=== PATIENT | male | born 1935 | race Caucasian/White ===

== ENCOUNTER → 2016-11-07 | Outpatient (CLI) | payer OTHER | LOC: CIMAGING 14:33 | PROVIDERS: ATTEND Internal Medicine | DX: K59.00 Constipation, unspecified (principal) | CPT/HCPCS: 74020-PO ==

== ENCOUNTER 2016-11-30 04:40 | Emergency (ER) | payer OTHER ==
--- NOTE | 2016-11-30 04:58 | EDPHY ---
H & P Time Seen by Provider: 11/30/16 04:40 HPI/ROS: CHIEF COMPLAINT: frequent urination. HISTORY OF PRESENT ILLNESS: 83 yo male who at baseline will get up 4 times in the night to urinate, on normal day. However as of this evening he finds himself awakening every 0.5 hour, locally unable to fall asleep as he needs to urinate at that point in time. He is not quite sure if he is having small volumes or not. Nonetheless it does not bother him. He is not having any stinging or burning or for fevers or chills or nausea vomiting. Furthermore he did notice through the course of the day today that he was urinating quite frequently, again without dysuria but really did not keep track it was only till tonight when he could fall asleep that he was noticing that it was particularly awry He is having no pain. There is no fevers or chills or nausea vomiting. No diarrhea. Scheduled for right hip replacement surgery in 4 days time He does recall this past [place] been tried on a course of VESIcare as he is having particular trouble with urinary frequency. Did not help, it was expensive, thus he discontinued it. At home, poor sleep, starting frustrated and feeling a little lightheaded thus he took his blood pressure which was unusually high for him. Though he did have a nuclear stress test just 3 days ago came in for general evaluation. REVIEW OF SYSTEMS: Constitutional: No fever, no chills. Eyes: No discharge ENT: No sore throat. Cardiovascular: No chest pain, no palpitations. Respiratory: No cough, shortness of breath, or wheezing. Gastrointestinal: No nausea vomiting or diarrhea. No abdominal pain. Genitourinary: No hematuria or foul-smelling urine Musculoskeletal: No back pain. Skin: No rashes. Neurological: No headache. 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 T&A, APPY - Family History Significant Family History: No pertinent family hx - Social History Smoking Status: Former smoker Alcohol Use: None Drug Use: None - Physical Exam Exam: General: WD, WN, nontoxic. Afebrile, thin elderly male. Skin is warm dry. HEENT: Slightly dry mucous membranes. TMs are clear. Phonation normal. Hearing normal. Neck: No adenopathy Lungs: Good air entry both lung duffy. No rales rhonchi wheezes Cardiovascular: Irregular rate and rhythm. No murmur Abdomen: No distention, flat. He winces when I press the left CVA. However he states it hurts on both sides on exam though he does not flinch on the right. BS present, soft, nontender. No masses. No guarding or rebound. No evidence of bladder enlargement on exam by percussion. Rectal: Prostate is small for his age slightly firm. Not boggy or tender. Genitalia: nl hair pattern. Descended bilaterally. [Circumsized], no lesions or discharge. Scrotum without swelling or tenderness. No focal tenderness. Nontender at mc, without weakness to the inguinal ring. No discharge. Extremities: Stigmata of chronic venous insufficiency however there is no acute swelling. No lymphatic changes. Neurologic: Awake alert nontoxic. Constitutional: Initial Vital Signs Temperature (C) 36.4 C 11/30/16 04:40 Heart Rate 78 11/30/16 04:40 Respiratory Rate 18 11/30/16 04:40 Blood Pressure 163/121 H 11/30/16 04:40 O2 Sat (%) 95 11/30/16 04:40 O2 Delivery Mode Room Air Allergies/Adverse Reactions: No Known Allergies Allergy (Verified 11/18/16 11:53) Home Medications: Medication Instructions Recorded Aspirin [Aspirin 81mg (*)] 81 mg PO DAILY@11/14/16 Digoxin 250 mcg PO DAILY@11/14/16 Diltiazem [Cardizem 60 MG (*)] 60 mg PO TID 11/14/16 Phenazopyridine HCl [Pyridium] 200 mg PO TID #6 tab 11/30/16 Sulfamethox/Tmp 800/160 mg 1 tab PO BID #6 tab 11/30/16 [Bactrim Ds] Medical Decision Making - Diagnostics EKG Interpretation: EKG. Interpreted by me contemporaneously. atrial fibrillation. Rate of 75. Rate controlled. QTC of 392. No ischemia ED Course/Re-evaluation: Bedside ultrasound performed for bladder localization as we do not have a bladder scanner. This was a postvoid and I was unable to see the bladder. Furthermore it does not percuss to be distended in this thin man Laboratory studies were essentially normal with a normal white count, normal anion gap, normal lactic acid, and a negative urine. Urine cultures were ordered. HE IS CONCERNED THAT SOMETHING MORE COMP IS GOING ON IS blood pressure was L fluid date at home. Thereby, an EKG was done as well as troponin both of which were negative. Clinical exam and concern is chiefly that for prostatism with frequency related to bladder spasm. No evidence at this point in time to suggest this is prostatitis. However he will be on 3 days of antibiotic pending follow-up with Urology for confirmation the indeed urine culture is negative and no signs of prostatitis evolved. I have impressed upon the family that they need to know this before her surgery on Thursday, 2 d from now. Differential Diagnosis: Differential diagnosis includes but is not limited to: Urinary tract infection, pyelonephritis, cystitis, ureterolithiasis, kidney stone, urinary retention, At this point time there is no evidence suggests this prostatitis. His prostate is not tender or soft for inflamed. The urinalysis is negative. Nonetheless that is still a concern thus he will go on Bactrim therapy pending the culture of the urine, with urologic follow-up. - Data Points Laboratory Results: Laboratory Results 11/30/16 05:07 11/30/16 05:07 11/30/16 11/30/16 11/30/16 05:07 05:07 05:07 WBC 4.63 10^3/uL 10^3/uL (3.80-9.50) RBC 4.74 10^6/uL 10^6/uL (4.40-6.38) Hgb 14.6 g/dL g/dL (13.7-17.5) Hct 43.6 % % (40.0-51.0) MCV 92.0 fL fL (81.5-99.8) MCH 30.8 pg pg (27.9-34.1) MCHC 33.5 g/dL g/dL (32.4-36.7) RDW 13.4 % % (11.5-15.2) Plt Count 142 10^3/uL L 10^3/uL (150-400) MPV 9.3 fL fL (8.7-11.7) Neut % (Auto) 38.5 % L % (39.3-74.2) Lymph % (Auto) 48.2 % H % (15.0-45.0) [place] % (Auto) 6.9 % % (4.5-13.0) Eos % (Auto) 5.6 % % (0.6-7.6) Baso % (Auto) 0.6 % % (0.3-1.7) Nucleat RBC Rel Count 0.0 % % (0.0-0.2) Absolute Neuts (auto) 1.78 10^3/uL 10^3/uL (1.70-6.50) Absolute Lymphs (auto) 2.23 10^3/uL 10^3/uL (1.00-3.00) Absolute Monos (auto) 0.32 10^3/uL 10^3/uL (0.30-0.80) Absolute Eos (auto) 0.26 10^3/uL 10^3/uL (0.03-0.40) Absolute Basos (auto) 0.03 10^3/uL 10^3/uL (0.02-0.10) Absolute Nucleated RBC 0.00 10^3/uL 10^3/uL (0-0.01) Immature Gran % 0.2 % % (0.0-1.1) Immature Gran # 0.01 10^3/uL 10^3/uL (0.00-0.10) VBG Lactic Acid Sodium 140 mEq/L mEq/L (134-144) Potassium 4.4 mEq/L mEq/L (3.5-5.2) Chloride 103 mEq/L mEq/L (97-110) Carbon Dioxide 26 mEq/l mEq/l (22-31) Anion Gap 11 mEq/L mEq/L (8-16) BUN 22 mg/dL mg/dL (7-23) Creatinine 0.9 mg/dL mg/dL (0.7-1.3) Estimated GFR > 60 Glucose 101 mg/dL H mg/dL (70-100) Calcium 9.1 mg/dL mg/dL (8.5-10.4) Troponin I 0.012 ng/mL ng/mL (0-0.034) Urine Color Urine Appearance Urine pH Ur Specific [place] Urine Protein Urine Ketones Urine Blood Urine Nitrate Urine Bilirubin Urine Urobilinogen Ur Leukocyte Esterase Urine Glucose 11/30/16 11/30/16 05:07 04:50 WBC RBC Hgb Hct MCV MCH MCHC RDW Plt Count MPV Neut % (Auto) Lymph % (Auto) [place] % (Auto) Eos % (Auto) Baso % (Auto) Nucleat RBC Rel Count Absolute Neuts (auto) Absolute Lymphs (auto) Absolute Monos (auto) Absolute Eos (auto) Absolute Basos (auto) Absolute Nucleated RBC Immature Gran % Immature Gran # VBG Lactic Acid 0.8 mmol/L mmol/L (0.7-2.1) Sodium Potassium Chloride Carbon Dioxide Anion Gap BUN Creatinine Estimated GFR Glucose Calcium Troponin I Urine Color YELLOW Urine Appearance CLEAR Urine pH 6.5 (5.0-7.5) Ur Specific [place] 1.015 (1.002-1.030) Urine Protein NEGATIVE (NEGATIVE) Urine Ketones NEGATIVE (NEGATIVE) Urine Blood NEGATIVE (NEGATIVE) Urine Nitrate NEGATIVE (NEGATIVE) Urine Bilirubin NEGATIVE (NEGATIVE) Urine Urobilinogen 0.2 EU EU (0.2-1.0) Ur Leukocyte Esterase NEGATIVE (NEGATIVE) Urine Glucose NEGATIVE (NEGATIVE) Medications Given: Discontinued Medications Phenazopyridine HCl (Pyridium) 200 mg PO EDNOW ONE Stop: 11/30/16 06:15 Last Admin: 11/30/16 06:52 Dose: 200 mg Trimethoprim/Sulfamethoxazole (Bactrim Ds) 1 ea PO EDNOW ONE PRN Reason: Protocol Stop: 11/30/16 06:15 Last Admin: 11/30/16 06:52 Dose: 1 ea Departure - Departure Disposition: Home, Routine, Self-Care Clinical Impression: Prostatism Condition: Good Additional Instructions: On Thursday Call your urologist: - went to ER at 4 in the morning Thursday - doubt prostatitis, suspect bladder spasms - however, if prostatitis surgery should be postponed - have your urologist see him to double check As a fall back, call this ER on Thursday for the final culture result. Three days of Bactrim therapy pending culture results Three days of Pyridium so as to decrease the frequency of urination. Referrals: Patient,NotPresent [Primary Care Provider] - As per Instructions Prescriptions: Phenazopyridine HCl [Pyridium] 200 mg PO TID #6 tab Sulfamethox/Tmp 800/160 mg [Bactrim Ds] 1 tab PO BID #6 tab
[2016-11-30 05:02] LABS: COLOR YELLOW; LEUKOCYTE ESTERASE,URINE NEGATIVE (NEGATIVE); NITRITE,URINE NEGATIVE (NEGATIVE); PH,URINE 6.5 (5.0-7.5)
[2016-11-30 05:04] VITALS: TEMP 97.5; O2SAT 95
[2016-11-30 05:15] LABS: % IMMATURE GRANULYOCYTES 0.2 % (0.0-1.1); ABSOLUTE IMMATURE GRANULOCYTES 0.01 10^3/uL (0.00-0.10); ADD DIFF? NO; ADD MORPH? NO; ADD SCAN? NO; ATYPICAL LYMPHOCYTE FLAG 10 (0-99); FRAGMENT RBC FLAG 0 (0-99); HEMATOCRIT 43.6 % (40.0-51.0); HEMOGLOBIN 14.6 g/dL (13.7-17.5); LEFT SHIFT FLG 0 (0-99); LIPEMIA HEMOLYSIS FLAG 80 (0-99); MEAN CELL HEMOGLOBIN 30.8 pg (27.9-34.1); MEAN CELL HEMOGLOBIN CONCENTR. 33.5 g/dL (32.4-36.7); MEAN PLATELET VOLUME 9.3 fL (8.7-11.7); PLATELET CLUMPS FLAG 0 (0-99); PLATELET COUNT 142 10^3/uL (150-400); RED BLOOD CELL COUNT 4.74 10^6/uL (4.40-6.38); RED CELL DISTRIBUTION WIDTH 13.4 % (11.5-15.2)
--- NOTE | 2016-11-30 05:16 | CPEKG ---
Heart Rate: 75 RR Interval: 800 QRSD Interval: 88 QT Interval: 364 QTC Interval: 407 QRS [place]: 22 T Wave [place]: 14 EKG Severity - ABNORMAL ECG - EKG Impression: ATRIAL FIBRILLATION, V-RATE 63-90 EKG Impression: LOW VOLTAGE IN FRONTAL LEADS Electronically Signed By: Tim Priest 30-Nov-2016 06:52:26
[2016-11-30 05:28] LABS: ANION GAP 11 mEq/L (8-16); CALCIUM 9.1 mg/dL (8.5-10.4); CARBON DIOXIDE 26 mEq/l (22-31); CHLORIDE 103 mEq/L (97-110); CREATININE 0.9 mg/dL (0.7-1.3); GLOMERULAR FILTRATION RATE > 60; GLUCOSE 101 mg/dL (70-100); POTASSIUM 4.4 mEq/L (3.5-5.2); SODIUM 140 mEq/L (134-144)
[2016-11-30 06:13] VITALS: BP 145/86; PULSE 86; RESP 16
[2016-11-30] MEDS ORDERED: SULFAMETHOX/TMP 800/160 MG 1 TAB PO ONE (06:14)
[2016-11-30] MEDS ORDERED: PHENAZOPYRIDINE HCL 200 MG TAB PO ONE (06:14)
[2016-12-02] MEDS ORDERED: BUPIVACAINE/EPI 0.5% 30 ML SDV ONE (07:55)
[2016-12-02] MEDS ORDERED: THROMBIN (BOVINE) 5,000 UNIT VIAL TP ONE (07:56)
[2016-12-02] MEDS ORDERED: BACITRACIN 50,000 UNITS/10 ML SYR IRR ONE (07:56)
[2016-12-02] MEDS ORDERED: CALCIUM CHLORIDE 1 GM/10 ML INJ ONE (07:56)
[2016-12-02] MEDS ORDERED: POLYMYXIN B SULFATE 500,000 UNIT/10 ML SYR IRR ONE (07:56)
== END 2016-11-30 06:57 | disposition home or self-care (01) ==
LOC: CED 04:40
DX: N40.0 Benign prostatic hyperplasia without lower urinary tract symptoms (principal); Z79.82 Long term (current) use of aspirin; Z87.891 Personal history of nicotine dependence
CPT/HCPCS: 80048-PO; 81003-PO; 83605-PO; 84484-PO; 85025-PO

== ENCOUNTER 2016-12-02 08:36 | Inpatient (IN) | payer OTHER ==
[2016-12-02] MEDS ORDERED: LR 1,000 ML IV ONE (09:27)
[2016-12-02] MEDS ORDERED: CHLORHEXIDINE GLUC HIBICLENS 118 ML BTL TP ONE (09:30)
[2016-12-02] MEDS ORDERED: ROPI/epiNEPH/KETOROLAC/morphINE JOINT COCKTAIL IU ONE (09:30)
[2016-12-02] MEDS ORDERED: ACETAMINOPHEN 325 MG TAB PO ONE (09:30)
[2016-12-02] MEDS ORDERED: POLYMYXIN B SULFATE 500,000 UNIT/10 ML SYR IRR ONE (09:36)
[2016-12-02] MEDS ORDERED: fentaNYL 100 MCG/2 ML INJ ONE (09:55)
[2016-12-02] MEDS ORDERED: FAMOTIDINE 20 MG TAB PO ONE (10:00)
[2016-12-02] MEDS ORDERED: MIDAZOLAM 2 MG/2 ML VIAL ONE (10:00)
[2016-12-02] MEDS ORDERED: CEFAZOLIN 2 GM/DEXTR 100 ML IV ONE (10:00)
[2016-12-02] MEDS ORDERED: PROPOFOL 200 MG/20 ML VIAL ONE (10:32)
[2016-12-02] MEDS ORDERED: PHARMACY PAIN CONSULT 1 EA MISC PRN (12:34)
[2016-12-02] MEDS ORDERED: CYCLOBENZAPRINE 10 MG TAB PO PRN (12:34)
[2016-12-02] MEDS ORDERED: diphenhydrAMINE 25 MG CAP PO PRN (12:34)
[2016-12-02] MEDS ORDERED: BISACODYL 10 MG SUPP PR PRN (12:34)
[2016-12-02] MEDS ORDERED: DIPHENOXYLATE/ATROPINE LOMOTIL 1 TAB PO PRN (12:34)
[2016-12-02] MEDS ORDERED: METOCLOPRAMIDE 10 MG/2 ML VIAL IVP PRN (12:34)
[2016-12-02] MEDS ORDERED: TEMAZEPAM 15 MG CAP PO PRN (12:34)
[2016-12-02] MEDS ORDERED: POLYETHYLENE GLYCOL 3350 17 GM PKT PO PRN (12:34)
[2016-12-02] MEDS ORDERED: PROMETHAZINE HCL 25 MG SUPPR PR PRN (12:34)
[2016-12-02] MEDS ORDERED: TAPENTADOL HCL 50 MG TAB PO PRN (12:34)
[2016-12-02] MEDS ORDERED: ONDANSETRON 4 MG/2 ML VIAL IVP PRN (12:34)
[2016-12-02] MEDS ORDERED: oxyCODONE IR 5 MG TAB PO PRN (12:34)
[2016-12-02] MEDS ORDERED: ONDANSETRON DISINTEGRATING 4 MG TAB PO PRN (12:34)
[2016-12-02] MEDS ORDERED: MAGNESIUM HYDROXIDE 30 ML UDCUP PO PRN (12:34)
[2016-12-02] MEDS ORDERED: LACTULOSE 20 GM/30 ML UDCUP PO PRN (12:34)
--- NOTE | 2016-12-02 12:34 | POSTOPPROG ---
Post Op Note Date of Operation: 12/02/16 Surgeon: Kirti Ca Facilities Maintenance Assistant: coltrain Anesthesia: Epidural Pre-op Diagnosis: r hip oa Procedure: r liliana with fluoro Inf/Abcess present in the surg proc area at time of surgery?: No Depth: Deep Incisional (Fascial) EBL: 100-500
[2016-12-02] MEDS ORDERED: LR 1,000 ML IV SCH (13:00)
[2016-12-02] MEDS ORDERED: ceFAZolin 2 GM/DEXTROSE 100 ML IV SCH (14:00)
--- NOTE | 2016-12-02 14:05 | GOP ---
[f rep st] OPERATIVE REPORT DATE OF OPERATION: 12/02/2016 SURGEON: Kirti Ca MD FINE UNHAIRER: Erwin Hilton, CSFA, LSA, whose presence was medically necessary. ANESTHESIA: Epidural nerve block. PREOPERATIVE DIAGNOSIS: Right hip osteoarthritis. POSTOPERATIVE DIAGNOSIS: Right hip osteoarthritis. PROCEDURE PERFORMED: Right total hip arthroplasty with the use of fluoroscopy. FINDINGS: INDICATIONS: This is an 81-year-old male with a long history of right hip pain, worsening with use and with time, causing a severe limp and using a cane for any activities around his house. X-ray ex am reveals severe osteoarthritic changes. He wishes to have surgery in order to resolve the problem . DESCRIPTION OF PROCEDURE: Patient brought to the operating room after the right side had been ident ified as the correct side by the patient, nurse, and physician. Once in the operating room, he was given an epidural nerve block. He was then placed supine and had a well-padded peroneal post placed on traction table and both legs placed in appropriate leg giordano. Fluoroscopy was used to ensure p monty positioning of the pelvis. Once in position, the arch table was locked into place and the rig ht hip and flank were sterilely prepped and draped in the usual fashion using GSI solution. Once pr epped and draped, a linear incision was made starting 2 cm lateral and inferior to the ASIS and head ing in a 15-degree posterior direction. Sharp dissection was carried down through the skin and subc utaneous layers with bleeding controlled using electrocautery until identifying the fascia overlying the TFL. The fascia was cut in line with its fibers with the TFL retracted laterally. Deeper diss ection into the base of the fascial sheath revealed the circumflex vessels, which were also cauteriz ed. Deeper dissection was carried down onto the fat overlying the anterior capsule with a blunt Cob ra retractor placed on the superior and inferior portions of the femoral neck. A T-incision was the n made through the capsule with stay sutures placed in the superior and inferior flaps, with the Cob ra retractors moved to be intra-articular. Oscillating saw was used to cut across the femoral neck just above the intertrochanteric line. The leg was externally rotated to 40 degrees in order to gai n access to the femoral head, which was able to be removed on its own. The labrum and pulvinar were removed from around the acetabulum and sequential reamers were used starting at 49 mm and extending up to 61 mm in order to achieve bleeding bone and good rim fit. A trial was noted to fit well. It s position was checked on fluoroscopy to ensure adequate depth and fit and angulature. Therefore, a 62 mm Tritanium cluster hole acetabular shell was put into place with a screw placed in the superio r and posterior portions of the cup. Once in position, a 62 x 36 mm polyethylene liner was placed i nto the cup, was noted to fit securely, and attention was then turned to the proximal femur. Proxim al femur was then externally rotated to 90 degrees. Soft tissue dissection was done on the anterior portion of the femoral neck and the superior portion of the femoral neck. Once there had been adeq uate capsular release, the leg was able to be placed in slight extension and adduction. Curette was used to remove medullary bone from the proximal portion of the femur and a rongeur was used to adilson ve the superior portion of the femoral neck. Sequential broaches were then placed within the femora l canal. Noted a size 8 seemed to fit best. Multiple trials were performed and noted that a 132-de gree neck gave better length. Therefore, an Accolade II 132-degree neck angle size 8 stem from [employer] was put into place. Multiple trials were then done with the head, noting the +10 head gave the best stability. Therefore, a 36+10 metal femoral head from [employer] was put into place after the juan nnion had been washed and dried. Final fluoroscopy pictures showed good placement of all the compon ents. The wound was thoroughly irrigated with antibiotic solution and was closed in layers to inclu de 0 Vicryl suture into the capsular layer with plasmagel placed intra-articularly. 0 Vicryl was th en used to close the fascial sheath overlying the TFL, with plasmagel placed within the TFL sheath. 0 Vicryl and 2-0 Vicryl suture were used to close the subcutaneous layers after joint cocktail had been injected around the hip capsule, the periosteum of the acetabulum, and proximal femur. 30 cc o f Marcaine was infused in the subcutaneous layers around the actual skin incision itself, and then t he skin was closed using a 3-0 V-Loc suture and a running subcuticular stitch for the skin. The wou nd was dressed with Steri-Strips, Xeroform, 4 x 4, and Tegaderm. He was completely undraped in the operating room, both legs taken out of the appropriate leg giordano. Peroneal post was removed. Leg lengths were noted to be nearly equal. He was then transferred onto a bed and sent to recovery room in good condition. /[id number]/MODL
[2016-12-02] MEDS ORDERED: DIGOXIN 250 MCG TAB PO SCH (15:00)
[2016-12-02] MEDS: DILTIAZEM 60 MG TAB PO SCH ×2 (17:13→22:30)
[2016-12-02] MEDS: ACETAMINOPHEN 325 MG TAB PO SCH ×2 (17:42→23:31)
[2016-12-02] MEDS: traMADol 50 MG TAB PO SCH ×2 (17:44→23:32)
[2016-12-02] MEDS: ceFAZolin 2 GM/DEXTROSE 100 ML IV SCH (17:53)
[2016-12-02] MEDS: KETOROLAC 30 MG/1 ML SDV IVP SCH ×2 (17:56→23:32)
[2016-12-02] MEDS: SENNOSIDES/DOCUSATE SODIUM TAB PO SCH (20:44)
[2016-12-02] MEDS: FAMOTIDINE 20 MG TAB PO SCH (20:44)
[2016-12-03] MEDS: ceFAZolin 2 GM/DEXTROSE 100 ML IV SCH (01:09)
[2016-12-03 04:58] LABS: HEMATOCRIT 31.8 % (40.0-51.0); HEMOGLOBIN 10.5 g/dL (13.7-17.5)
[2016-12-03] MEDS: KETOROLAC 30 MG/1 ML SDV IVP SCH ×2 (05:07→12:12)
[2016-12-03] MEDS: ACETAMINOPHEN 325 MG TAB PO SCH ×2 (05:08→12:12)
[2016-12-03] MEDS: traMADol 50 MG TAB PO SCH ×2 (05:09→12:12)
[2016-12-03] MEDS: DILTIAZEM 60 MG TAB PO SCH (08:14)
[2016-12-03] MEDS: FAMOTIDINE 20 MG TAB PO SCH (08:40)
[2016-12-03] MEDS: SENNOSIDES/DOCUSATE SODIUM TAB PO SCH (08:40)
[2016-12-03] MEDS ORDERED: RIVAROXABAN 10 MG TAB PO SCH (09:00)
[2016-12-03 11:56] VITALS: BP 113/73; PULSE 85; RESP 15; TEMP 97.8; O2SAT 97
--- NOTE | 2016-12-03 14:15 | SOAPPROG ---
SOAP Progress Note Assessment/Plan: Assessment: Plan: 12/03/16 14:15 d.c home Subjective: no issues Objective: Vital Signs Temp Pulse Resp BP Pulse Ox 36.6 C 85 15 113/73 97 12/03/16 11:55 12/03/16 11:55 12/03/16 11:55 12/03/16 11:55 12/03/16 11:55 Laboratory Results 12/03/16 04:15 12/02/16 12/03/16 12/04/16 05:59 05:59 05:59 Intake Total 3805 Output Total 1275 550 Balance 2530 -550 nvi, no dvt - Time Spent With Patient Time Spent With Patient: 10 - Pending Discharge Pending Discharge Within 24 Hours: Yes Pending Discharge Within 48 Hours: No Pending Discharge Date: 12/04/16 Pending Discharge Time: 11:00 ICD10 Worksheet Patient Problems: Problems Problem Status Onset Arthritis of left knee Acute
--- NOTE | 2016-12-03 14:18 | PDIAF ---
- Diagnosis Code Status: Full Code - Medication Management Discharge Medications: Medications to Continue on Transfer Aspirin EC [Aspirin EC 81 mg (*)] 81 mg PO DAILY@1500 12/02/16 [Last Taken 11/25] Digoxin [Lanoxin 250 mcg (RX)] 125 mcg PO DAILY@1500 12/02/16 [Last Taken ] Diltiazem [Cardizem 60 MG (*)] 60 mg PO DAILY@08,15,23 12/02/16 [Last Taken 09/19 07:00 ONE DOSE] Herbals/Supplements -Info Only 1 ea PO DAILY 12/02/16 [Last Taken Unknown] Polyethylene Glycol 3350 [Miralax 17 gm (*)] 17 gm PO DAILY PRN 12/02/16 [Last Taken Unknown] Tears/Dextran 70/Hypromellose [Natural Balance Tears (*)] 1 drop EACHEYE DAILY PRN 12/02/16 [Last Taken Unknown] Acetaminophen [Tylenol 325mg (*)] 650 mg PO Q6HRS #0 tab 12/03/16 [Last Taken Unknown] Cyclobenzaprine [Flexeril 10 MG (*)] 10 mg PO Q8HRS PRN #0 tab 12/03/16 [Last Taken Unknown] Digoxin [Lanoxin 125 mcg (RX)] 125 mcg PO DAILY@1500 #0 tab 12/03/16 [Last Taken Unknown] Diltiazem [Cardizem 60 MG (*)] 60 mg PO TID #0 tab 12/03/16 [Last Taken Unknown] Rivaroxaban [Xarelto 10mg (*)] 10 mg PO DAILY #0 tab 12/03/16 [Last Taken Unknown] celeCOXIB [Celebrex (*)] 200 mg PO DAILY #0 cap 12/03/16 [Last Taken Unknown] oxyCODONE IR [Oxycodone Ir (*)] 5 - 10 mg PO Q3HRS PRN #0 tab 12/03/16 [Last Taken Unknown] traMADol [Ultram 50 mg (*)] 50 mg PO Q6HRS #0 tab 12/03/16 [Last Taken Unknown] Discharge Medications: Refer to the Discharge Home Medication list for PRN reason. PICC Care - Routine: N/A - Orders Services needed: Physical Therapy Diet Recommendation: no restrictions on diet Diet Texture: Regular Texture Diet [place]: Not applicable - Follow Up Care Current Providers and Referrals: Stephie Neal MD [Primary Care Provider] -
[2016-12-03] MEDS ORDERED: DIGOXIN 125 MCG TAB PO SCH (15:00)
== END 2016-12-03 14:56 | disposition home health service (06) | DRG 470 ==
LOC: F3N 08:36
PROVIDERS: ADMIT Orthopaedic Surgery; ATTEND Orthopaedic Surgery
PROC: 0SR90JZ Replacement of Right Hip Joint with Synthetic Substitute, Open Approach (ICD-10-PCS; principal; 2016-12-02 10:00)
DX: M16.11 Unilateral primary osteoarthritis, right hip (principal); I48.2 Chronic atrial fibrillation; R12 Heartburn; G62.9 Polyneuropathy, unspecified; I10 Essential (primary) hypertension; Z96.652 Presence of left artificial knee joint
CPT/HCPCS: 97161-GP; 97165-GO; C1713; G8978-GP-CI; G8979-GP-CI; G8980-GP-CI; G8987-GO-CI; G8988-GO-CI; G8989-GO-CI; J0171; J0690; J1885; J2250; J2704; J2795; J3010